=== PATIENT | male | born 1995 | race African-American/Black ===

== ENCOUNTER 2025-05-31 18:28 | Emergency (ER) | payer OTHER ==
[~2025-05-31] VITALS: Ht 170.1 cm; Wt 78.5 kg
[2025-05-31] MEDS ORDERED: SODIUM CHLORIDE 0.9% 1,000 ML IV ONE (18:55)
[2025-05-31 19:18] LABS: BASO # 0.0 10*3/uL (0.0-0.1); BASO % 0.6 % (0.0-1.0); EOS # 0.2 10*3/uL (0.0-0.4); EOS % 3.0 % (1.0-4.0); MEAN CELL VOLUME 73.9 fl (80.0-94.0); MEAN CORPUSCULAR HGB 22.9 pg (27.0-31.0); MEAN PLATELET VOLUME 10.1 fl (9.6-12.3); MONO # 0.3 10*3/uL (0.1-1.0); MONO % 5.6 % (3.0-9.0); NEUT # 2.7 10*3/uL (2.3-7.9); NEUT % 49.9 % (47.0-73.0); NUCLEATED RED BLOOD CELL 0.0 % (0.0-0.0); NUCLEATED RED BLOOD CELL 0.0 10*3/uL (0.0-0.0); PLATELET COUNT AUTOMATED 229 10*3/uL (130-400); RED CELL DISTRI WIDTH 14.0 % (0-14.5)
[2025-05-31 19:27] LABS: BILIRUBIN Negative (Negative); BLOOD Negative (Negative); CLARITY Clear (Clear); COLOR Yellow (Yellow); KETONE Negative (Negative); LEUKO ESTERASE Trace (Negative); NITRITE Negative (Negative); PH 7.0 (4.5-8.0); SPECIFIC GRAVITY 1.025 (1.001-1.030); UROBILINOGEN 1.0 E.U./dl (0.0-1.0)
[2025-05-31 20:14] LABS: BUN 9 mg/dl (9-23); SGPT/ALT 21 U/L (5-49)
[2025-05-31 20:32] LABS: BACTERIA TRACE
[2025-05-31] MEDS ORDERED: MAGNESIUM CITRATE 296 ML BOT PO ONE (20:45)
== END 2025-05-31 20:57 | disposition home or self-care (01) ==
LOC: ED 18:28
PROVIDERS: Nurse Practitioner Family
DX: K59.00 Constipation, unspecified (principal); R10.30 Lower abdominal pain, unspecified; R39.198 Other difficulties with micturition; Z87.442 Personal history of urinary calculi